=== PATIENT | female | born 1955 | race Caucasian/White ===

== ENCOUNTER 2018-02-18 08:14 | Day surgery (SDC) | payer OTHER ==
[~2018-02-18] VITALS: Ht 170.2 cm; Wt 46.7 kg
[2018-02-18] MEDS ORDERED: KETOROLAC 30 MG/ML VIAL ONE (10:04)
[2018-02-18] MEDS ORDERED: LIDOCAINE 2% 100 MG/5 ML UJET TP ONE (10:04)
== END 2018-02-18 11:10 | disposition home or self-care (01) ==
LOC: MMU 08:14 → MDS 08:14
PROVIDERS: ATTEND Internal Medicine Gastroenterology
DX: Z09 Encounter for follow-up examination after completed treatment for conditions other than malignant neoplasm (principal); Z86.010 Personal history of colon polyps; K57.30 Diverticulosis of large intestine without perforation or abscess without bleeding; J45.909 Unspecified asthma, uncomplicated; F17.210 Nicotine dependence, cigarettes, uncomplicated; Z98.890 Other specified postprocedural states; Z88.8 Allergy status to other drugs, medicaments and biological substances; Z81.1 Family history of alcohol abuse and dependence; Z80.0 Family history of malignant neoplasm of digestive organs
CPT/HCPCS: 45378; J1885

== ENCOUNTER 2018-04-14 13:44 | Emergency (ER) | payer OTHER ==
[~2018-04-14] VITALS: Ht 170.2 cm; Wt 48.6 kg
[2018-04-14 13:55] VITALS: BP 109/77
--- NOTE | 2018-04-14 13:57 | NUR ---
PT TO BED 2 VIA WHEELCHAIR
--- NOTE | 2018-04-14 14:00 | NUR ---
63Y/F BIB FAMILY WITH C/O RT BOTTOM FOOT PAIN RADIATING ABOVE THE RT ANKLE X 2 WKS; DENIES TRIP/FALL OR INJURY; TOOK IBUPROFEN AN HOUR AGO WITH NO RELIEF. + BRUISING, - DEFORMITY, + CMS, PT IS AAOX4, VSS AT THIS TIME, BED DOWN, BEDRAIL UP X 1, ER MD AWARE AND NOTIFIED OF PT STATUS. HX; DENIES RX; DENIES
--- NOTE | 2018-04-14 14:30 | NUR ---
pt taken to x-ray
--- NOTE | 2018-04-14 14:35 | NUR ---
pt back from x-ray
--- NOTE | 2018-04-14 14:54 | NUR ---
Patient being evaluated by physician at bedside.
[2018-04-14 15:05] LABS: BASOPHILS % (AUTO) 0.8 % (0.0-2.0); EOSINOPHILS # (AUTO) 0.2 K/uL (0-0.4); EOSINOPHILS % (AUTO) 3.5 % (0.0-4.0); HEMATOCRIT 44.8 % (36-48); HEMOGLOBIN 14.7 g/dL (12.0-16.0); LYMPHOCYTES # (AUTO) 2.4 K/uL (2.5-16.5); LYMPHOCYTES % (AUTO) 42.7 % (20.5-51.1); MEAN CORPUSCULAR HEMOGLOBIN 31 pg (27-31); MEAN CORPUSCULAR HGB CONC 33 g/dL (33-37); MEAN CORPUSCULAR VOLUME 94.1 fL (80-94); MONOCYTES # (AUTO) 0.3 K/uL (0.8-1.0); MONOCYTES % (AUTO) 4.9 % (1.7-9.3); NEUTROPHILS # (AUTO) 2.7 K/uL (1.8-7.7); NEUTROPHILS % (AUTO) 48.1 % (42.2-75.2); PLATELET COUNT (AUTO) 195 K/uL (140-450); RED BLOOD CELL COUNT(AUTO) 4.76 MIL/uL (4.20-5.40); RED CELL DISTRIBUTION WIDTH 12.9 % (11.6-13.7); WHITE BLOOD COUNT (AUTO) 5.5 K/uL (4.8-10.8)
[2018-04-14 15:26] VITALS: BP 111/76
== END 2018-04-14 15:26 | disposition home or self-care (01) ==
LOC: MED 13:44
DX: M72.2 Plantar fascial fibromatosis (principal); F17.200 Nicotine dependence, unspecified, uncomplicated; J44.9 Chronic obstructive pulmonary disease, unspecified; Z71.6 Tobacco abuse counseling; Z88.5 Allergy status to narcotic agent
CPT/HCPCS: 36415; 73630; 84550; 85025; 99284

== ENCOUNTER 2018-05-04 00:32 | Emergency (ER) | payer OTHER ==
[~2018-05-04] VITALS: Ht 170.2 cm; Wt 48.5 kg
[2018-05-04 00:39] VITALS: BP 122/66
[2018-05-04] MEDS ORDERED: traMADol 50 MG TAB PO ONE (01:10)
[2018-05-04] MEDS ORDERED: IBUPROFEN 600 MG TAB PO ONE (01:10)
[2018-05-04 01:59] VITALS: BP 120/68
== END 2018-05-04 01:59 | disposition home or self-care (01) ==
LOC: MED 00:32
DX: S52.502A Unspecified fracture of the lower end of left radius, initial encounter for closed fracture (principal); J44.9 Chronic obstructive pulmonary disease, unspecified; W19.XXXA Unspecified fall, initial encounter; Y93.41 Activity, dancing; Y92.89 Other specified places as the place of occurrence of the external cause; Y99.8 Other external cause status
CPT/HCPCS: 29125; 73110; 99283; Q0092

== ENCOUNTER 2019-01-09 18:54 | Emergency (ER) | payer OTHER ==
[~2019-01-09] VITALS: Ht 170.2 cm; Wt 47.2 kg
[2019-01-09 18:56] VITALS: BP 115/65
[2019-01-09 19:16] VITALS: BP 111/77
[2019-01-09] MEDS ORDERED: ALBUTEROL SULFATE/IPRATROPIU 3 ML SOL IH ONE (19:35)
[2019-01-09] MEDS ORDERED: methylPREDNISolone SS 125 MG/2 ML VIAL IVP ONE (19:35)
[2019-01-09 19:55] LABS: BASOPHILS % (AUTO) 0.8 % (0.0-2.0); EOSINOPHILS # (AUTO) 0.2 K/uL (0-0.4); EOSINOPHILS % (AUTO) 2.9 % (0.0-4.0); HEMATOCRIT 42.3 % (36-48); HEMOGLOBIN 14.2 g/dL (12.0-16.0); LYMPHOCYTES # (AUTO) 2.7 K/uL (2.5-16.5); LYMPHOCYTES % (AUTO) 42.5 % (20.5-51.1); MEAN CORPUSCULAR HEMOGLOBIN 32 pg (27-31); MEAN CORPUSCULAR HGB CONC 34 g/dL (33-37); MEAN CORPUSCULAR VOLUME 93.9 fL (80-94); MONOCYTES # (AUTO) 0.3 K/uL (0.8-1.0); MONOCYTES % (AUTO) 5.2 % (1.7-9.3); NEUTROPHILS # (AUTO) 3.1 K/uL (1.8-7.7); NEUTROPHILS % (AUTO) 48.6 % (42.2-75.2); PLATELET COUNT (AUTO) 221 K/uL (140-450); RED BLOOD CELL COUNT(AUTO) 4.51 MIL/uL (4.20-5.40); RED CELL DISTRIBUTION WIDTH 12.9 % (11.6-13.7); WHITE BLOOD COUNT (AUTO) 6.3 K/uL (4.8-10.8)
[2019-01-09 20:13] LABS: ANION GAP 12.5 (8-16); CARBON DIOXIDE 29.5 mmol/L (21-32); CREATININE 1.1 mg/dL (0.6-1.3)
[2019-01-09 20:14] LABS: TOTAL BILIRUBIN 0.9 mg/dL (0.0-1.0)
[2019-01-09 20:15] LABS: ALBUMIN 3.9 g/dL (3.4-5.0)
[2019-01-09] MEDS ORDERED: AZITHROMYCIN 500 MG in DEXTROSE 5% 250 ML IV ONE (21:10)
[2019-01-09] MEDS ORDERED: AZITHROMYCIN 500 MG INJ VIAL IV ONE (21:26)
[2019-01-09 22:34] VITALS: BP 118/70
== END 2019-01-09 22:34 | disposition home or self-care (01) ==
LOC: MED 18:54
DX: J44.1 Chronic obstructive pulmonary disease with (acute) exacerbation (principal); Z86.69 Personal history of other diseases of the nervous system and sense organs; Z88.5 Allergy status to narcotic agent
CPT/HCPCS: 36415; 71045; 80053; 83880; 84484; 85025; 93005; 94640; 96365; 96375; 99284; J0456; J2930; J7620; Q0092

== ENCOUNTER 2019-07-14 17:20 | Emergency (ER) | payer OTHER ==
[~2019-07-14] VITALS: Ht 170.2 cm; Wt 49.7 kg
[2019-07-14 17:43] VITALS: BP 121/59
[2019-07-14] MEDS ORDERED: ALBUTEROL SULFATE/IPRATROPIU 3 ML SOL IH ONE ×2 (18:30→18:55)
[2019-07-14] MEDS ORDERED: predniSONE 20 MG TAB PO ONE (18:30)
[2019-07-14 19:45] VITALS: BP 122/62
== END 2019-07-14 19:45 | disposition home or self-care (01) ==
LOC: MED 17:20
DX: J20.9 Acute bronchitis, unspecified (principal); J44.9 Chronic obstructive pulmonary disease, unspecified; F17.210 Nicotine dependence, cigarettes, uncomplicated
CPT/HCPCS: 71045; 94640; 99284; J7512; Q0092

== ENCOUNTER 2019-08-23 10:59 | Emergency (ER) | payer OTHER ==
[~2019-08-23] VITALS: Ht 170.2 cm; Wt 50.3 kg
[2019-08-23 11:09] VITALS: BP 119/83
--- NOTE | 2019-08-23 11:10 | NUR ---
PT TO ER BED 9
--- NOTE | 2019-08-23 11:30 | NUR ---
INITAL CONTACT WITH PATIENT -- RECEVIED A 64/F FROM TRIAGE FOR SOB. PT REPORTS THAT SHE NORMALLY TAKES HER QVAR AND VENTOLIN INHALERS WITH MINIMAL RELIEF. +SICK CONTACTS AT HOME. WHEEZES HEARD BILATERALLY. PT IS NEGATIVE FOR COVID SCREEN PER DR ALVARADO. DR ALVARADO AT BEDSIDE FOR MSE.
--- NOTE | 2019-08-23 11:33 | NUR ---
[facility], [facility] BEDSIDE FOR PORTABLE CXR.
[2019-08-23] MEDS ORDERED: ALBUTEROL SULFATE/IPRATROPIU 3 ML SOL IH ONE (11:45)
[2019-08-23] MEDS ORDERED: methylPREDNISolone SS 125 MG/2 ML VIAL IM ONE (11:45)
--- NOTE | 2019-08-23 11:51 | NUR ---
MEDICATED ORDERED. WILL REASSES.
--- NOTE | 2019-08-23 12:05 | NUR ---
PT REPORTS RELIEF OF SMYPTOMS WITH RT BREATHING TX AND SOLU-MEDROL. NO ADVERSE REACTIONS NOTED.
[2019-08-23] MEDS ORDERED: LEVOFLOXACIN 750 MG TAB PO ONE (12:25)
--- NOTE | 2019-08-23 12:37 | NUR ---
Patient discharged with v/s stable. Written and verbal after care instructions given and explained. Patient alert, oriented and verbalized understanding of instructions. Ambulatory with steady gait. All questions addressed prior to discharge. ID band removed. Patient advised to follow up with PMD. Rx of LEVAQUIN, PREDNISONE, ALBUTEROL given. Patient educated on indication of medication including possible reaction and side effects. Opportunity to ask questions provided and answered.
[2019-08-23 12:38] VITALS: BP 119/83
== END 2019-08-23 12:37 | disposition home or self-care (01) ==
LOC: MED 10:59
DX: J44.1 Chronic obstructive pulmonary disease with (acute) exacerbation (principal); F17.210 Nicotine dependence, cigarettes, uncomplicated; R56.9 Unspecified convulsions
CPT/HCPCS: 71045; 94640; 96372; 99283; J2930; Q0092

== ENCOUNTER 2019-12-27 16:30 | Emergency (ER) | payer OTHER ==
[~2019-12-27] VITALS: Ht 170.2 cm; Wt 52.6 kg
[2019-12-27 16:46] VITALS: BP 118/66
--- NOTE | 2019-12-27 16:55 | NUR ---
64/F FROM HOME WITH CC: SOB AND PROD COUGH X 1 WEEK. HX COPD. STATES SOB EVEN AT REST. IS ON UNSPECIFIED INHALER AND STEROIDS. DENIES PAIN, N/V, F/C, DIZZINESS, WEAKNESS, TRAVEL, SICK CONTACTS. VSS. APPEARS COMFORTABLE. SPEAKING IN FULL CLEAR SENTENCES. AMBULATORY FROM ER TENT TO BED 10 WITH EASE, PLACED ON BEDSIDE MONITOR WITH RR 14 AND SPO2 96% RA. HX- COPD ALL- CODEINE
--- NOTE | 2019-12-27 16:59 | NUR ---
DR ALVARADO EVALUATING PT AT BEDSIDE
[2019-12-27] MEDS ORDERED: ALBUTEROL SULFATE/IPRATROPIU 3 ML SOL IH ONE (17:00)
--- NOTE | 2019-12-27 17:06 | NUR ---
RT CALLED FOR BREATHING TX
--- NOTE | 2019-12-27 17:20 | NUR ---
ADMINISTERED [facility] THERAPY AND [facility]PIRATORY DRUG ORDERED ENCOURAGED PATIENT FOR INTEMITTENT DEEP BREATHING DURING THERAPY
[2019-12-27 17:47] VITALS: BP 118/66
--- NOTE | 2019-12-27 17:48 | NUR ---
Patient discharged with v/s stable. Written and verbal after care instructions given and explained. Patient alert, oriented and verbalized understanding of instructions. Ambulatory with steady gait. All questions addressed prior to discharge. ID band removed. Patient advised to follow up with PMD. Rx of ALBUTEROL, TESSALON, LEVAQUIN given. Patient educated on indication of medication including possible reaction and side effects. Opportunity to ask questions provided and answered.
== END 2019-12-27 17:48 | disposition home or self-care (01) ==
LOC: MED 16:30
DX: J44.1 Chronic obstructive pulmonary disease with (acute) exacerbation (principal); I10 Essential (primary) hypertension; Z88.5 Allergy status to narcotic agent
CPT/HCPCS: 71045; 94640; 99283

== ENCOUNTER 2020-02-28 13:30 | Emergency (ER) | payer OTHER ==
[~2020-02-28] VITALS: Ht 170.2 cm; Wt 52.6 kg
[2020-02-28 13:33] VITALS: BP 138/105
--- NOTE | 2020-02-28 13:38 | NUR ---
Pt wheelchair assisted to bed 12 Addendum: 02/28/20 at 1450 by [email or web address] Patient discharged with v/s stable. Written and verbal after care instructions given and explained. Patient alert, oriented and verbalized understanding of instructions. Ambulatory with steady gait. All questions addressed prior to discharge. ID band removed. Patient advised to follow up with PMD. Rx of RENATO NEGRON given. Patient educated on indication of medication including possible reaction and side effects. Opportunity to ask questions provided and answered.
--- NOTE | 2020-02-28 13:40 | NUR ---
65 y/o female from home c/o left ankle pain s/p "slipping" yesterday. Denies fall/LOC. Mild swelling noted to lateral aspect of ankle. No bruising noted. Tender to touch. Pt unable to ambulate/bear weight on left leg. Skin warm, dry, intact. VSS medhx: Asthma, COPD
[2020-02-28] MEDS ORDERED: KETOROLAC 60 MG/2 ML VIAL IM ONE (13:45)
[2020-02-28 14:49] VITALS: BP 138/105
--- NOTE | 2020-02-28 14:50 | NUR ---
CD PROVIDED TO PATIENT
--- NOTE | 2020-02-28 14:52 | NUR ---
Patient discharged with v/s stable. Written and verbal after care instructions given and explained. Patient alert, oriented and verbalized understanding of instructions. Ambulatory with steady gait. All questions addressed prior to discharge. ID band removed. Patient advised to follow up with PMD. Rx of MOTRIN,NORCO given. Patient educated on indication of medication including possible reaction and side effects. Opportunity to ask questions provided and answered.
== END 2020-02-28 14:52 | disposition home or self-care (01) ==
LOC: MED 13:30
DX: S92.122A Displaced fracture of body of left talus, initial encounter for closed fracture (principal); S92.252A Displaced fracture of navicular [scaphoid] of left foot, initial encounter for closed fracture; J44.9 Chronic obstructive pulmonary disease, unspecified; F17.200 Nicotine dependence, unspecified, uncomplicated; Z88.5 Allergy status to narcotic agent; X58.XXXA Exposure to other specified factors, initial encounter; Y93.89 Activity, other specified; Y92.89 Other specified places as the place of occurrence of the external cause; Y99.8 Other external cause status
CPT/HCPCS: 29515; 73610; 96372; 99283; J1885

== ENCOUNTER 2020-09-18 13:11 | Emergency (ER) | payer OTHER ==
[~2020-09-18] VITALS: Ht 170.2 cm; Wt 54.4 kg
[2020-09-18 13:14] VITALS: BP 97/56
--- NOTE | 2020-09-18 13:19 | NUR ---
Patient wheelchair assisted to bed 4.
--- NOTE | 2020-09-18 13:21 | NUR ---
65 Y/O FEMALE C/O BILATERAL FEET PAIN 10/10 DESCRIBES ACHING AND RADIATES TO THE CALF AND SWELLING X1WEEK. PT STATES SHE IS UNABLE TO DORSIFLEX BOTH FEET BECAUSE OF INTENSE SHOOTING PAIN. PT DENIES N/V, DENIES FEVER/CHILLS. PT BS 110 AT THIS TIME. PMH: COPD, ASTHMA ALLERGIES: CODEINE
--- NOTE | 2020-09-18 13:22 | NUR ---
JENNIFER Briones at pt bedside for further evaluation.
[2020-09-18] MEDS ORDERED: KETOROLAC 30 MG/ML VIAL IM ONE ×2 (13:25→13:40)
[2020-09-18] MEDS ORDERED: NAPR-54 PO (13:55)
[2020-09-18] MEDS ORDERED: GABA100C PO (13:55)
[2020-09-18 14:05] VITALS: BP 97/56
--- NOTE | 2020-09-18 14:05 | NUR ---
Patient discharged with v/s stable. Written and verbal after care instructions given and explained. Patient alert, oriented and verbalized understanding of instructions. Ambulatory with steady gait. All questions addressed prior to discharge. ID band removed. Patient advised to follow up with PMD. Rx of NAPROXEN 500MG PO BID, AND GABAPENTIN 100MG PO TID given. Patient educated on indication of medication including possible reaction and side effects. Opportunity to ask questions provided and answered.
[2020-09-18] MEDS ORDERED: chlordiazePOXIDE 25 MG CAP PO SCH (17:00)
== END 2020-09-18 14:05 | disposition home or self-care (01) ==
LOC: MED 13:11
DX: G90.09 Other idiopathic peripheral autonomic neuropathy (principal); J44.9 Chronic obstructive pulmonary disease, unspecified; Z88.5 Allergy status to narcotic agent
CPT/HCPCS: 96372; 99283; J1885

== ENCOUNTER 2021-03-06 13:13 | Emergency (ER) | payer OTHER, SELFPAY ==
[~2021-03-06] VITALS: Ht 170.2 cm; Wt 50.8 kg
[~2021-03-06 13:13] MED LIST: GABA100C PO; NAPR-54 PO
[2021-03-06 13:21] VITALS: BP 121/70
--- NOTE | 2021-03-06 13:23 | NUR ---
PT TO AWAIT IN TENT
--- NOTE | 2021-03-06 15:12 | NUR ---
DR CASTANEDA EXAMINING PT IN TENT
--- NOTE | 2021-03-06 16:30 | NUR ---
NO NURSING ASSESSMENT DONE, NO COMPLETE ASSESSMENT NEEDED.
[2021-03-06] MEDS ORDERED: PRED20TA5 PO (17:02)
[2021-03-06 17:14] VITALS: BP 117/67
== END 2021-03-06 17:14 | disposition home or self-care (01) ==
LOC: MED 13:13
DX: J44.9 Chronic obstructive pulmonary disease, unspecified (principal); R07.89 Other chest pain; Z71.6 Tobacco abuse counseling; F17.210 Nicotine dependence, cigarettes, uncomplicated; Z79.899 Other long term (current) drug therapy; Z79.1 Long term (current) use of non-steroidal anti-inflammatories (NSAID); Z88.5 Allergy status to narcotic agent
CPT/HCPCS: 71045; 93005; 99283; Q0092

== ENCOUNTER 2021-03-14 09:37 | Emergency (ER) | payer OTHER, SELFPAY ==
[~2021-03-14] VITALS: Ht 170.2 cm; Wt 49.9 kg
[~2021-03-14 09:37] MED LIST changes: +PRED20TA5 PO
[2021-03-14 09:49] VITALS: BP 120/87
--- NOTE | 2021-03-14 09:56 | NUR ---
PT AMB TO BED 6. HANDED ON URIN CUP.
[2021-03-14] MEDS ORDERED: KETOROLAC 15 MG/ML VIAL IM ONE (10:10)
--- NOTE | 2021-03-14 10:25 | NUR ---
Urine sample retrieved. urine dipped and [facility]
--- NOTE | 2021-03-14 10:25 | NUR ---
66 y/o Female BIB for C/O RLQ ABDOMINAL PAIN X 2 DAYS. Pain is sharp and non-radiating. Denies N/V/D at this time. Denies CP. AOX4, able to make all needs known. Denies any black or red stool at this time. BS heard x4 quad. PmHx: COPD, ASTHMA, HERNIA, C SECTIONS Allergies: Codeine Home meds: Denies
--- NOTE | 2021-03-14 10:28 | NUR ---
Lab at bedside to draw blood
[2021-03-14 10:39] LABS: BASOPHILS % (AUTO) 0.6 % (0.0-2.0); EOSINOPHILS # (AUTO) 0.2 K/uL (0-0.4); EOSINOPHILS % (AUTO) 3.7 % (0.0-4.0); HEMATOCRIT 40.1 % (36-48); HEMOGLOBIN 13.6 g/dL (12.0-16.0); LYMPHOCYTES # (AUTO) 1.8 K/uL (2.5-16.5); MEAN CORPUSCULAR HEMOGLOBIN 32 pg (27-31); MEAN CORPUSCULAR HGB CONC 34 g/dL (33-37); MEAN CORPUSCULAR VOLUME 93.2 fL (80-94); MONOCYTES # (AUTO) 0.4 K/uL (0.8-1.0); MONOCYTES % (AUTO) 6.4 % (1.7-9.3); NEUTROPHILS # (AUTO) 3.8 K/uL (1.8-7.7); NEUTROPHILS % (AUTO) 60.3 % (42.2-75.2); PLATELET COUNT (AUTO) 222 K/uL (140-450); RED CELL DISTRIBUTION WIDTH 13.1 % (11.6-13.7); WHITE BLOOD COUNT (AUTO) 6.3 K/uL (4.8-10.8)
[2021-03-14 10:56] LABS: ALBUMIN 3.6 g/dL (3.4-5.0); ANION GAP 8.2 (8-16); CARBON DIOXIDE 30.5 mmol/L (21-32); CREATININE 1.1 mg/dL (0.6-1.3); POTASSIUM 3.7 mmol/L (3.5-5.1); TOTAL BILIRUBIN 0.5 mg/dL (0.0-1.0)
[2021-03-14] MEDS ORDERED: CIPR500P4 PO (12:59)
[2021-03-14] MEDS ORDERED: METR-435 PO (12:59)
[2021-03-14 13:41] VITALS: BP 120/87
--- NOTE | 2021-03-14 13:41 | NUR ---
Patient discharged with v/s stable. Written and verbal after care instructions given and explained. Patient alert, oriented and verbalized understanding of instructions. Ambulatory with steady gait. All questions addressed prior to discharge. ID band removed. Patient advised to follow up with PMD. Rx of CLINDAMYCIN AND METRONIDAZOLE given. Patient educated on indication of medication including possible reaction and side effects. Opportunity to ask questions provided and answered.
== END 2021-03-14 13:41 | disposition home or self-care (01) ==
LOC: MED 09:37
DX: K52.9 Noninfective gastroenteritis and colitis, unspecified (principal); J44.9 Chronic obstructive pulmonary disease, unspecified; Z79.1 Long term (current) use of non-steroidal anti-inflammatories (NSAID); Z79.2 Long term (current) use of antibiotics; Z79.899 Other long term (current) drug therapy; Z88.5 Allergy status to narcotic agent
CPT/HCPCS: 36415; 74177; 80053; 81002; 81025; 83690; 85025; 96372; 99285; J1885; Q9967

== ENCOUNTER 2021-07-13 11:52 | Emergency (ER) | payer OTHER, SELFPAY ==
[~2021-07-13] VITALS: Ht 170.2 cm; Wt 51.7 kg
[~2021-07-13 11:52] MED LIST changes: +CIPR500P4 PO; +METR-435 PO
[2021-07-13 11:56] VITALS: BP 142/67
--- NOTE | 2021-07-13 11:59 | NUR ---
PT SENT TO LOBBY
--- NOTE | 2021-07-13 12:27 | NUR ---
pt amb to bed 8.
--- NOTE | 2021-07-13 12:56 | NUR ---
66/F BIB SELF WITH C/O LEFT UPPER CHEST SWELLING AND AN "INDENTATION" X2 WEEKS. DENIES RECENT INJURY OR TRAUMA, DENIES PAIN, STATES NO RASH OR IRRITATION TO SKIN.
[2021-07-13 14:08] VITALS: BP 142/67
--- NOTE | 2021-07-13 14:08 | NUR ---
Patient discharged with v/s stable. Written and verbal after care instructions MEDICAL SCREENING EXAM given and explained. Patient verbalized understanding. Ambulatory with steady gait. All questions addressed prior to discharge. Advised to follow up with PMD.
== END 2021-07-13 14:08 | disposition home or self-care (01) ==
LOC: MED 11:52
DX: I10 Essential (primary) hypertension (principal); R22.2 Localized swelling, mass and lump, trunk; J44.9 Chronic obstructive pulmonary disease, unspecified; Z88.5 Allergy status to narcotic agent; Z79.899 Other long term (current) drug therapy
CPT/HCPCS: 99284

== ENCOUNTER 2021-10-03 18:22 | Emergency (ER) | payer OTHER ==
[~2021-10-03] VITALS: Ht 170.2 cm; Wt 50.1 kg
[2021-10-03 18:31] VITALS: BP 121/46
[2021-10-03] MEDS ORDERED: ALBUTEROL SULFATE/IPRATROPIU 3 ML SOL IH ONE ×2 (18:45→19:55)
[2021-10-03] MEDS ORDERED: methylPREDNISolone SS 125 MG/2 ML VIAL IVP ONE (18:45)
[2021-10-03] MEDS ORDERED: MAG SULF 2000 MG/WATER PREMIX 50 ML IV ONE (18:45)
[2021-10-03 18:54] LABS: BASOPHILS % (AUTO) 0.4 % (0.0-2.0); EOSINOPHILS # (AUTO) 0.2 K/uL (0-0.4); EOSINOPHILS % (AUTO) 3.2 % (0.0-4.0); HEMOGLOBIN 14.4 g/dL (12.0-16.0); LYMPHOCYTES # (AUTO) 3.1 K/uL (2.5-16.5); LYMPHOCYTES % (AUTO) 41.8 % (20.5-51.1); MEAN CORPUSCULAR HEMOGLOBIN 32 pg (27-31); MEAN CORPUSCULAR HGB CONC 34 g/dL (33-37); MEAN CORPUSCULAR VOLUME 94.4 fL (80-94); MONOCYTES # (AUTO) 0.3 K/uL (0.8-1.0); MONOCYTES % (AUTO) 4.2 % (1.7-9.3); NEUTROPHILS # (AUTO) 3.7 K/uL (1.8-7.7); NEUTROPHILS % (AUTO) 50.4 % (42.2-75.2); PLATELET COUNT (AUTO) 204 K/uL (140-450); RED BLOOD CELL COUNT(AUTO) 4.56 MIL/uL (4.20-5.40); WHITE BLOOD COUNT (AUTO) 7.3 K/uL (4.8-10.8)
--- NOTE | 2021-10-03 19:05 | NUR ---
66YO FEMALE PT C/O CHEST PAIN . PT STATES TIGHT 9/10 INCONSISTENT CHEST PAIN WITH NO RADIATION X1 WEEK. PT STATES SOB AND NAUSEA WHEN IN PAIN, CURRENTLY STATES BOTH. O2 CURRENTLY AT 97 ROOM AIR. PT STATES OCCASIONAL DIZZINESS , DENIES AT THIS TIME. PT DENIES V/D OR FEVER. PT TOOK 3 BABY ASPIRIN 2 PRIOR TO ARRIVAL ,HAD NO RELIEF. AAOX4, RESPIRATIONS EVEN AND UNLABORED , CLEAR LUNGS AND NO VISIBLE DISTRESS. PT PUT ON MONITOR . BED AT LOWEST POSITION,BED RAIL UP X1 HX:COPD ALLERGIES: CODEINE
[2021-10-03 19:14] LABS: ALBUMIN 3.8 g/dL (3.4-5.0); ANION GAP 11.8 (8-16); CARBON DIOXIDE 27.8 mmol/L (21-32); CREATININE 1.1 mg/dL (0.6-1.3); POTASSIUM 3.6 mmol/L (3.5-5.1); TOTAL BILIRUBIN 0.4 mg/dL (0.0-1.0)
--- NOTE | 2021-10-03 19:29 | NUR ---
REPORT GIVEN TO AMBER SPEAR . TRANSFER OF CARE
[2021-10-03] MEDS ORDERED: BUDE1AER IH (19:58)
[2021-10-03] MEDS ORDERED: PRED20TA5 PO (19:58)
--- NOTE | 2021-10-03 21:50 | NUR ---
IV removed, catheter intact and site benign. Applied folded 4x4 gauze and tape to stop bleeding.
[2021-10-03 21:51] VITALS: BP 104/54
--- NOTE | 2021-10-03 21:51 | NUR ---
Patient discharged. Written and verbal after care instructions given and explained. Patient alert, oriented and verbalized understanding of instructions. Ambulatory with steady gait. All questions addressed prior to discharge. ID band removed. Patient advised to follow up with PMD. Rx of Symbicort 160-4.5mcg inhaler and Deltasone given. Patient educated on indication of medication including possible reaction and side effects. Opportunity to ask questions provided and answered.
== END 2021-10-03 21:51 | disposition home or self-care (01) ==
LOC: MED 18:22
DX: J44.1 Chronic obstructive pulmonary disease with (acute) exacerbation (principal); I10 Essential (primary) hypertension; F17.200 Nicotine dependence, unspecified, uncomplicated; Z79.899 Other long term (current) drug therapy; Z79.2 Long term (current) use of antibiotics; Z79.1 Long term (current) use of non-steroidal anti-inflammatories (NSAID); Z88.5 Allergy status to narcotic agent
CPT/HCPCS: 36415; 71045; 80053; 83880; 84484; 85025; 93005; 94640; 96365; 96366; 96375; 99285; J2930; J3475

== ENCOUNTER 2022-04-06 14:50 | Emergency (ER) | payer MEDICARE, OTHER ==
[~2022-04-06] VITALS: Ht 170.2 cm; Wt 51.3 kg
[~2022-04-06 14:50] MED LIST changes: +BUDE1AER IH
[2022-04-06 14:57] VITALS: BP 119/65
[2022-04-06] MEDS ORDERED: ALBUTEROL 0.083% 2.5 MG/3 ML NEBU INH ONE (15:35)
--- NOTE | 2022-04-06 16:05 | NUR ---
RT BEDSIDE TO DO BREATHING TX.
[2022-04-06 16:37] LABS: BASOPHILS # (AUTO) 0.1 K/uL (0.00-0.22); EOSINOPHILS # (AUTO) 0.3 K/uL (0-0.4); HEMATOCRIT 48.1 % (36-48); LYMPHOCYTES # (AUTO) 3.1 K/uL (2.5-16.5); LYMPHOCYTES % (AUTO) 44.7 % (20.5-51.1); MEAN CORPUSCULAR HEMOGLOBIN 32 pg (27-31); MEAN CORPUSCULAR HGB CONC 33 g/dL (33-37); MEAN CORPUSCULAR VOLUME 96.2 fL (80-94); MONOCYTES # (AUTO) 0.3 K/uL (0.8-1.0); MONOCYTES % (AUTO) 4.4 % (1.7-9.3); NEUTROPHILS # (AUTO) 3.2 K/uL (1.8-7.7); NEUTROPHILS % (AUTO) 45.9 % (42.2-75.2); PLATELET COUNT (AUTO) 224 K/uL (140-450); RED BLOOD CELL COUNT(AUTO) 5.01 MIL/uL (4.20-5.40); RED CELL DISTRIBUTION WIDTH 13.3 % (11.6-13.7)
[2022-04-06 17:19] LABS: ALBUMIN 4.1 g/dL (3.4-5.0); ANION GAP 13.5 (8-16); ASPARTATE AMINOTRANSFERASE 22 U/L (15-37); CARBON DIOXIDE 30.5 mmol/L (21-32); CHLORIDE 106 mmol/L (98-107); GFR ARICAN-AMERICAN 72 mL/min (>90); GLUCOSE 92 mg/dL (74-106); SODIUM SERUM 146 mmol/L (136-145); TOTAL BILIRUBIN 0.3 mg/dL (0.0-1.0); UREA NITROGEN, BLOOD 9 mg/dL (7-18)
--- NOTE | 2022-04-06 18:30 | NUR ---
Patient discharged with v/s stable. Written and verbal after care instructions given and explained. Patient verbalized understanding. Ambulatory with steady gait. All questions addressed prior to discharge. Advised to follow up with PMD.
[2022-04-06 18:43] VITALS: BP 105/57
== END 2022-04-06 18:30 | disposition home or self-care (01) ==
LOC: MED 14:50
DX: R07.9 Chest pain, unspecified (principal); I10 Essential (primary) hypertension; J45.909 Unspecified asthma, uncomplicated; J44.9 Chronic obstructive pulmonary disease, unspecified; F17.200 Nicotine dependence, unspecified, uncomplicated; Z79.1 Long term (current) use of non-steroidal anti-inflammatories (NSAID); Z79.899 Other long term (current) drug therapy
CPT/HCPCS: 36415; 71045; 80053; 84484; 85025; 93005; 94640; 99285; J7613; Q0092

== ENCOUNTER 2022-07-06 16:47 | Emergency (ER) | payer MEDICARE, OTHER ==
[~2022-07-06] VITALS: Ht 170.2 cm; Wt 48.6 kg
[2022-07-06 17:00] VITALS: BP 103/71
[2022-07-06] MEDS ORDERED: DEXAMETHASONE 4 MG/ML VIAL PO ONE (19:00)
[2022-07-06] MEDS ORDERED: BENZ200C4 PO (20:43)
[2022-07-06 21:00] VITALS: BP 114/71
== END 2022-07-06 21:00 | disposition home or self-care (01) ==
LOC: MED 16:47
DX: J06.9 Acute upper respiratory infection, unspecified (principal); L50.9 Urticaria, unspecified; Z20.822 Contact with and (suspected) exposure to COVID-19; J44.9 Chronic obstructive pulmonary disease, unspecified; I10 Essential (primary) hypertension; F17.200 Nicotine dependence, unspecified, uncomplicated; Z79.899 Other long term (current) drug therapy; Z79.2 Long term (current) use of antibiotics; Z79.1 Long term (current) use of non-steroidal anti-inflammatories (NSAID); Z88.5 Allergy status to narcotic agent
CPT/HCPCS: 71045; 87426; 87804; 99284; J1100; Q0092

== ENCOUNTER 2023-05-08 21:06 | Emergency (ER) | payer MEDICARE, OTHER ==
[~2023-05-08] VITALS: Ht 170.2 cm; Wt 47.6 kg
[~2023-05-08 21:06] MED LIST changes: +BENZ200C4 PO
[2023-05-08 21:38] VITALS: BP 102/60; PULSE 88; RESP 20; TEMP 98; O2SAT 95
[2023-05-08 23:00] LABS: FLU A ANTIGEN negative (NEGATIVE); FLU B ANTIGEN NEGATIVE (NEGATIVE)
[2023-05-09] VITALS: BP 102/60; TEMP 98
[2023-05-09] MEDS ORDERED: ALBUTEROL SULFATE/IPRATROPIU 3 ML SOL IH ONE (00:50)
[2023-05-09 01:06] VITALS: PULSE 56; RESP 16; O2SAT 96
[2023-05-09] MEDS ORDERED: ALBU0.0912 IH (01:16)
[2023-05-09] MEDS ORDERED: AZIT250T4 PO (01:16)
[2023-05-09] MEDS ORDERED: PRED20TA5 PO (01:16)
== END 2023-05-09 01:35 | disposition home or self-care (01) ==
LOC: MED 21:06
DX: J44.1 Chronic obstructive pulmonary disease with (acute) exacerbation (principal); Z20.822 Contact with and (suspected) exposure to COVID-19; I10 Essential (primary) hypertension; F17.210 Nicotine dependence, cigarettes, uncomplicated; Z71.6 Tobacco abuse counseling; Z79.899 Other long term (current) drug therapy; Z79.1 Long term (current) use of non-steroidal anti-inflammatories (NSAID); Z79.2 Long term (current) use of antibiotics; Z88.5 Allergy status to narcotic agent
CPT/HCPCS: 71045; 94640; 99284

== ENCOUNTER 2023-10-27 15:44 | Emergency (ER) | payer MEDICARE, OTHER ==
[~2023-10-27] VITALS: Ht 170.2 cm; Wt 49.9 kg
[~2023-10-27 15:44] MED LIST changes: +ALBU0.0912 IH; +ALBU0.0912 INH; +AZIT250T3 PO; +AZIT250T4 PO; +LOTC TP; +NAPR-337 PO; -NAPR-54 PO
[2023-10-27 16:12] VITALS: BP 104/57; PULSE 59; RESP 17; TEMP 98.1; O2SAT 96
[2023-10-27] MEDS: ACETAMINOPHEN 325 MG TAB PO ONE (17:25)
[2023-10-27] MEDS: KETOROLAC 30 MG/ML VIAL IM ONE (17:26)
[2023-10-27] MEDS ORDERED: METH-1681 PO (17:34)
== END 2023-10-27 17:55 | disposition home or self-care (01) ==
LOC: MED 15:44
DX: M13.811 Other specified arthritis, right shoulder (principal); J45.909 Unspecified asthma, uncomplicated; J44.9 Chronic obstructive pulmonary disease, unspecified; I10 Essential (primary) hypertension; Z88.5 Allergy status to narcotic agent; Z79.899 Other long term (current) drug therapy
CPT/HCPCS: 73030; 96372; 99283; J1885